=== PATIENT | female | born 1985 | race Two or more races ===

== ENCOUNTER 2017-03-19 16:05 | Emergency (ER) | payer MEDICAID, OTHER ==
[~2017-03-19] VITALS: Ht 167.6 cm; Wt 72.6 kg
[2017-03-19 16:36] VITALS: BP 135/71
[2017-03-19] MEDS ORDERED: TETANUS-DIPTH-ACEL PERTUSSIS 0.5ML SYRG IM ONE (17:00)
[2017-03-19] MEDS ORDERED: IBUPROFEN 800 MG TAB PO ONE (17:00)
[2017-03-19] MEDS ORDERED: cefTRIAXone SOD 1,000 MG VL IM ONE (17:30)
== END 2017-03-19 18:28 | disposition home or self-care (01) ==
LOC: ER 16:23
DX: S62.635B Displaced fracture of distal phalanx of left ring finger, initial encounter for open fracture (principal); W45.8XXA Other foreign body or object entering through skin, initial encounter; Y93.89 Activity, other specified; Y99.8 Other external cause status; Y92.29 Other specified public building as the place of occurrence of the external cause
CPT/HCPCS: 29130; 73140; 90471; 90715; 96372; 99285; J0696

== ENCOUNTER 2018-10-31 16:55 | Emergency (ER) | payer OTHER ==
[~2018-10-31] VITALS: Ht 167.6 cm; Wt 72.6 kg
[2018-10-31 17:02] VITALS: BP 113/77
== END 2018-10-31 20:18 | disposition home or self-care (01) ==
LOC: ER 16:59
DX: M75.91 Shoulder lesion, unspecified, right shoulder (principal); V43.52XA Car driver injured in collision with other type car in traffic accident, initial encounter; Y93.89 Activity, other specified; Y99.8 Other external cause status; Y92.410 Unspecified street and highway as the place of occurrence of the external cause
CPT/HCPCS: 73030